=== PATIENT | female | born 1975 | race Caucasian/White ===

== ENCOUNTER 2020-09-16 15:39 | Emergency (ER) | payer OTHER, SELFPAY ==
[2020-09-16 15:45] VITALS: BP 114/89; PULSE 78; RESP 14; TEMP 36.7; O2SAT 98
[2020-09-16] MEDS: Ketorolac Tromethamine 60 MG/2 ML VIAL IM (16:27)
[2020-09-16] MEDS: Lidocaine HCl 2 % MPF 5 ML VIAL SUBCUT (16:28)
--- NOTE | 2020-09-16 16:35 | ED.DENTAL ---
HPI - Dental/Oral General Chief complaint: Dental/Oral Stated complaint: Dental infection Time Seen by Provider: 09/16/20 15:45 Source: patient Mode of arrival: ambulatory Limitations: no limitations History of Present Illness HPI Narrative: Left lower dental pain and swelling x several days. No fevers/chills. Related Data Previous Rx's Medication Instructions Recorded clindamycin HCl 150 mg PO TID 10 Days #30 cap 09/16/20 ketorolac 10 mg PO Q8H PRN #10 tab 09/16/20 Allergies Allergy/AdvReac Type Severity Reaction Status Date / Time erythromycin base Allergy Hives Verified 09/16/20 15:44 acetaminophen [From Vicodin] AdvReac Nausea and Verified 09/16/20 15:45 Vomiting gabapentin AdvReac Shakiness Verified 09/16/20 15:45 hydrocodone [From Vicodin] AdvReac Nausea and Verified 09/16/20 15:45 Vomiting Review of Systems Review of Systems: Yes all other systems are reviewed and are negative Constitutional: Constitutional: Reports no additional constitutional complaints, Denies body ache(s), Denies chills, Denies fever(s), Denies headache(s) and Denies weakness Eyes: Eyes: Reports no additional eye complaints and Denies change in vision ENT: Reports system reviewed and no additional complaints, except as documented, Reports dental pain, Denies dizziness, Denies headache(s), Denies nasal congestion, Denies nasal discharge and Denies neck pain Cardiovascular: Cardiovascular: Reports no additional cardiovascular complaints, Denies chest pain, Denies leg edema and Denies dyspnea Respiratory: Respiratory: Reports no additional respiratory complaints, Denies cough and Denies dyspnea Gastrointestinal: Gastrointestinal: Reports no additional gastrointestinal complaints, Denies abdominal pain, Denies diarrhea, Denies nausea and Denies vomiting Genitourinary: Genitourinary: Reports no additional female genitourinary complaints and Denies urinary incontinence Musculoskeletal: Musculoskeletal: Reports no additional musculoskeletal complaints, Denies back pain, Denies arthralgias, Denies joint swelling, Denies neck pain, Denies numbness and Denies tingling Integumentary/Breasts: Skin/Breast: Reports system reviewed and no additional complaints, except as docu and Denies rash Neurologic: Reports system reviewed and no additional complaints, except as documented, Denies Abnormal speech present, Denies dizziness, Denies headache(s), Denies numbness, Denies tingling and Denies weakness PMFSH Past Medical History Attestation statement: The following information was validated with the patient. Source: old records reviewed and nursing notes reviewed Medical History Anxiety Bipolar 1 disorder Cervical cyst Manic depression PTSD (post-traumatic stress disorder) Surgical History H/O elbow surgery H/O tubal ligation Social History Social History Advance Directives: No Advance Directives Information Provided: No Patient : No Physical Exam Vital Signs: Vital Signs: Last Vital Signs Temp 98.1 F 09/16/20 15:45 Pulse 78 09/16/20 15:45 Resp 14 09/16/20 15:45 BP 114/89 09/16/20 15:45 Pulse Ox 98 09/16/20 15:45 Body Mass Index 0.2 Const: General: cooperative, healthy appearing, comfortable and no acute distress Orientation/consciousness: patient oriented x3 Limitations: no limitations HENMT: Head: Yes normal to inspection Ears: hearing grossly normal bilaterally General nose exam: Normal external nose present Face and sinus: Yes normal facial exam Face images: 1. Mild swelling. No trismus Mouth: Normal oral and palatal mucosa present Teeth image: 1. Extensive caries with swelling no obvious fluctuance there is some mild induration Throat: Yes posterior oropharynx normal Eyes: General: appearance normal, both eyes and all related structures Pupils: Equal, round and reactive pupils present Neck: Neck: Yes normal visual inspection Chest: Chest palpation & inspection: normal inspection of the chest Resp: Effort & Inspection: normal respiratory effort Auscultation: clear to auscultation bilaterally Cardio: Rate: regular rate Rhythm: regular rhythm Peripheral pulses: Peripheral pulses 2+ throughout GI: Inspection: Yes normal to inspection Palpation (GI): Soft to palpation and nontender Auscultation: normal bowel sounds Back/Spine/Pelvis: Thoracic/Lumbar Spine: thoracic and lumbar spine normal to inspection Skin: General skin exam: no rashes or lesions noted Neuro: General: patient oriented x3, no focal motor deficits and normal sensation to monofilament Cranial nerves: Yes Equal, round and reactive pupils present Cognition (Neuro): normal cognition Speech: No Abnormal speech present Gait exam (Neuro): Normal gait present Motor exam (neuro): 5/5 motor strength present throughout Extrem: General: Yes normal to inspection Course Course Course Narrative: Left lower dental swelling and pain. There is local facial swelling. The patient had topical benzocaine applied to the site. Dental block by Dr. Ahmadi with partial success with anesthesia. Attempted to drain the abscess but unsuccessful. Will start patient on oral antibiotics. Toradol IM in ED with some improvement in symptoms. Reviewed worrisome signs and symptoms of when to return to the emergency department. Comfortable discharge home. MDM - Dental/Oral Differential Diagnosis Differential diagnosis: Likely dental caries and dental abscess Medical Records Attestation: I reviewed the patient's medical records. Lab Data Attestation: I reviewed the patient's lab results. Discharge Plan Discharge Clinical Impression: Dental abscess Patient Disposition: Home, Self-Care Instructions: Dental Abscess (ED) Additional Instructions: see dentist salt water gargles soft foods Prescriptions: New clindamycin HCl 150 mg capsule 150 mg PO TID 10 Days Qty: 30 RF: 0 ketorolac 10 mg tablet 10 mg PO Q8H PRN (Reason: pain) Qty: 10 RF: 0 Referrals: Zoraida Beard MD [Primary Care Provider] - 2 days Interventions: ED Discharge Assessment Last Done: 09/16/20 16:51 Discharge Date/Time: 09/16/20 16:52
[2020-09-16] MEDS: Clindamycin HCL 150 MG CAPSULE PO (16:48)
== END 2020-09-16 16:52 | disposition home or self-care (01) ==
PROVIDERS: Emergency Provider Internal Medicine; PCP Internal Medicine
DX: K04.7 Periapical abscess without sinus (principal)
CPT/HCPCS: 41800; 96372; 99283; 99284; J1885

== ENCOUNTER 2020-10-31 20:45 | Emergency (ER) | payer OTHER, SELFPAY ==
[2020-10-31 20:48] VITALS: BP 111/70; PULSE 78; RESP 16; TEMP 37.2; O2SAT 98; BMI 21.1
[2020-10-31] MEDS: cephALEXin 500 MG CAPSULE PO (21:30)
[2020-10-31] MEDS: Lidocaine HCl 1 % MPF 5 ML VIAL SUBCUT (21:30)
--- NOTE | 2020-10-31 22:01 | ED_ITS ---
HPI - Skin/Abscess/Foreign Bdy General Chief complaint: Skin/Abscess/Foreign Body Stated complaint: abcess Time Seen by Provider: 10/31/20 21:11 Source: patient Mode of arrival: ambulatory History of Present Illness HPI narrative: 45-YEAR-OLD FEMALE WITH A PAST MEDICAL HISTORY OF ANXIETY, BIPOLAR, MANIC DEPRESSION, PTSD, PRESENTING TO THE ED COMPLAINING OF DRAINING ABSCESS TO RIGHT FOREARM X3 DAYS. ADMITS LANCED AREA WITH [employer] PET[employer] AND PET SUPPLIES THIS MORNING AND HAS BEEN DRAINING SINCE. DENIES INJECTING DRUGS INTO THIS AREA. ALSO REPORTS LEFT-SIDED SWOLLEN GUMS TIMES WEEKS, WITH HISTORY OF DENTAL ABSCESS IN THE PAST. DENIES FEVER, CHILLS, DIFFICULTY SWALLOWING, ORAL SWELLING MD complaint: abscess/boil Related Data Previous Rx's Medication Instructions Recorded clindamycin HCl 150 mg capsule 150 mg PO TID 10 Days #30 cap 09/16/20 ketorolac 10 mg tablet 10 mg PO Q8H PRN #10 tab 09/16/20 cephalexin 500 mg capsule 500 mg PO QID 7 Days #28 cap 10/31/20 doxycycline hyclate 100 mg tablet 100 mg PO BID 7 Days #14 tab 10/31/20 Allergies Allergy/AdvReac Type Severity Reaction Status Date / Time erythromycin base Allergy Hives Verified 09/16/20 15:44 acetaminophen [From Vicodin] AdvReac Nausea and Verified 09/16/20 15:45 Vomiting gabapentin AdvReac Shakiness Verified 09/16/20 15:45 hydrocodone [From Vicodin] AdvReac Nausea and Verified 09/16/20 15:45 Vomiting Review of Systems Review of Systems: Constitutional: No Fever, No Chills, No Fatigue, No Malaise ENT/Mouth: No Ear Pain, No Nasal Congestion, No sore throat, + dental pain Eyes: No Eye Pain, No Swelling, No Redness Cardiovascular: No Chest Pain, No SOB Respiratory: No Cough, No Dyspnea Gastrointestinal: No Nausea, No Vomiting, No Abdominal pain Musculoskeletal: No joint pain, No Myalgias, + Joint Swelling Skin: + Skin Lesions, No rash Neuro: No Weakness, No Numbness, No Paresthesias Yes all other systems are reviewed and are negative PMFSH Past Medical History Attestation statement: The following information was validated with the patient. Medical History Anxiety Bipolar 1 disorder Cervical cyst Manic depression PTSD (post-traumatic stress disorder) Surgical History H/O elbow surgery H/O tubal ligation Social History Social History Advance Directives: No Advance Directives Information Provided: No Physical Exam Vital Signs: Vital Signs: Last Vital Signs Temp 99 F 10/31/20 20:48 Pulse 78 10/31/20 20:48 Resp 16 10/31/20 20:48 BP 111/70 10/31/20 20:48 Pulse Ox 98 10/31/20 20:48 Body Mass Index 21.1 Const: General: cooperative and healthy appearing Orientation/consciousness: patient oriented x3 Limitations: no limitations HENMT: Other: Mild lower left gingival swelling. No fluctuance/induration. Poor dentition. No fluctuance/induration. No evidence of cellulitis. Head: Yes normal to inspection and Yes atraumatic Ears: hearing grossly normal bilaterally General nose exam: Normal external nose present Face and sinus: Yes normal facial exam Teeth and gingiva: poor dentition Throat: Yes posterior oropharynx normal, Yes tonsils normal, Yes uvula midline, No peritonsillar mass and No uvular edema Eyes: General: appearance normal, both eyes and all related structures EOM: EOMs intact bilaterally Neck: Neck: Yes normal visual inspection Resp: Effort & Inspection: normal respiratory effort and no respiratory distress Cardio: Rate: regular rate Peripheral pulses: radial pulses present Skin: Other: + open draining abscess noted to right forearm with surrounding cellulitis. + central fluctuance and surrounding induration. No streaking. Warm to touch. Not circumferential. Rashes: no rashes Neuro: General: patient oriented x3, gait normal and tone normal Gait exam (Neuro): Normal gait present Extrem: General: Yes normal to inspection MDM - Skin/Abscess/Foreign Bdy MDM Narrative Medical decision making narrative: 45-YEAR-OLD FEMALE WITH A PAST MEDICAL HISTORY OF ANXIETY, BIPOLAR, MANIC DEPRESSION, PTSD, PRESENTING TO THE ED COMPLAINING OF DRAINING ABSCESS TO RIGHT FOREARM X3 DAYS. ALSO REPORTS LEFT- SIDED SWOLLEN GUMS x WEEKS, WITH HISTORY OF DENTAL ABSCESS IN THE PAST. ON EXAM VSS, IN THE ED, PHYSICAL EXAM ABOVE. POINTING/DRAINING ABSCESS NOTED TO RIGHT FOREARM, WILL I AND D. MILD LEFT LOWER GINGIVAL SWELLING WITHOUT APPRECIABLE INTRAORAL ABSCESS. PLAN: I & D, GIVE 1ST DOSE OF P.O. ANTIBIOTICS IN ED Medical Records Attestation: I reviewed the patient's medical records. Lab Data Attestation: I reviewed the patient's lab results. Procedures Abscess I/D Site: upper extremity Side (if applicable): right Local Anesthetic: lidocaine 1% Amount of anesthesia used (mL): 5 Sent for culture/gram staining?: No Irrigation: No Packing used?: none Complications: pain Discharge Plan Discharge Clinical Impression: Abscess of skin or subcutaneous tissue Qualifiers: Site of cutaneous abscess: extremity Site of cutaneous abscess of extremity: upper extremity Laterality: right Qualified Code(s): L02.413 - Cutaneous abscess of right upper limb Patient Disposition: Home, Self-Care Instructions: Abscess (ED), Abscess Follow-up (ED) Additional Instructions: Your abscess was opened/drain today in the ED Keflex and doxycycline are antibiotics, please take as prescribed Keep a close eye on area begins to worsen, redness is spreading, you have fever, or there streaking up her arm please return to the ED Prescriptions: New cephalexin 500 mg capsule 500 mg PO QID 7 Days Qty: 28 RF: 0 doxycycline hyclate 100 mg tablet 100 mg PO BID 7 Days Qty: 14 RF: 0 No Action clindamycin HCl 150 mg capsule 150 mg PO TID 10 Days Qty: 30 RF: 0 ketorolac 10 mg tablet 10 mg PO Q8H PRN (Reason: pain) Qty: 10 RF: 0 Referrals: Zoraida Beard MD [Primary Care Provider] - 3 days
== END 2020-10-31 22:20 | disposition home or self-care (01) ==
PROVIDERS: Emergency Provider Internal Medicine; PCP Internal Medicine
DX: L02.413 Cutaneous abscess of right upper limb (principal)
CPT/HCPCS: 10060; 99283; 99284

== ENCOUNTER 2022-09-11 20:00 | Emergency (ER) | payer OTHER, SELFPAY ==
--- NOTE | ~2022-09-11 | CT_ITS ---
EXAMINATION: CT ABDOMEN AND PELVIS WITHOUT CONTRAST CLINICAL INFORMATION: Right lower quadrant pain COMPARISON: None available. TECHNIQUE: Multidetector volumetric imaging was performed from the superior aspect of the liver through the pubic symphysis. Sagittal and coronal reformatted images were obtained on the technologist's workstation. This CT examination was performed using dose optimization techniques as appropriate, variously including the following: *Automated exposure control *Adjustment of mA and/or kV according to patient size (this includes techniques or standardized protocols for targeted exams where dose is matched to indication/reason for exam; i.e. extremities or head) *Use of iterative reconstruction technique DLP: 280 mGy-cm FINDINGS: LUNG BASES: The visualized lung bases are unremarkable. LIVER, GALLBLADDER, AND BILIARY TREE: The dome of the right hepatic lobe is not fully included on this exam. The liver is normal in size, shape, and attenuation. No focal hepatic lesion or biliary ductal dilatation is identified on this noncontrast exam. The gallbladder is unremarkable. PANCREAS: Grossly unremarkable. SPLEEN: Mildly enlarged. ADRENAL GLANDS: Grossly unremarkable though not well delineated. KIDNEYS AND URETERS: Kidneys appear symmetric. No hydronephrosis or obstructing calculus identified. BLADDER: Minimally distended and grossly unremarkable. GASTROINTESTINAL TRACT: No evidence of bowel obstruction. No significant bowel wall thickening is seen though assessment in some segments of the colon is suboptimal due to luminal collapse. Appendix appears nondilated. No free fluid or free air is seen. ABDOMINAL WALL: No significant hernia is appreciated. LYMPH NODES: No definite lymphadenopathy is seen, though assessment is limited in the absence of intravenous contrast. VASCULAR: Relatively mild scattered atherosclerotic calcification. PELVIC VISCERA: Grossly unremarkable. OSSEOUS STRUCTURES: Unremarkable. CT/CT abdomen pelvis wo IV con IMPRESSION: Normal appendix. No acute findings identified in the abdomen/pelvis, though assessment is suboptimal without intravenous contrast. Mild splenomegaly.
--- NOTE | ~2022-09-11 | XR_ITS ---
EXAMINATION: XR CHEST CLINICAL INFORMATION: Pain COMPARISON: None available. TECHNIQUE: 2 views of the chest were obtained. FINDINGS: The lungs are clear with no focal consolidation. No evidence of pneumothorax, pulmonary edema, or pleural effusions. The cardiomediastinal silhouette is unremarkable. No acute osseous findings. XR/XR chest 2V IMPRESSION: No acute cardiopulmonary findings.
[2022-09-11 21:25] VITALS: BP 147/86; PULSE 79; RESP 18; TEMP 36.7; O2SAT 97; BMI 20.8
--- NOTE | 2022-09-11 21:30 | PC.NURSE ---
patient stated she came into the ER due to she was having pain in the upper right shoulder and the lower abdomen patient stated she has a break out of rash she lives out in the [facility] patient have pain 4/10 patient vitals are stable at this time
[2022-09-11 22:05] LABS: Appearance Urine Cloudy; Color Urine Dark Yellow; Glucose Urine UA Negative (Negative); Leukocyte Esterase Urine Negative (Negative); Nitrite Urine Negative (Negative); Specific Gravity - Urine >= 1.030 (1.005-1.025); UMIC TRIGGER UACC YES; Urine Blood Negative (Negative); Urine Ketones Trace mg/dL (Negative); Urine Protein 30 (1+) mg/dL (Neg-Trace)
[2022-09-11 22:10] LABS: UPreg QC Valid YES; Urine Pregnancy NEGATIVE (NEGATIVE)
[2022-09-11 22:13] LABS: Bacteria Urine Trace (None Seen); Calcium Oxalate Crystals Urine Present; Hyaline Casts Urine 0-2 /LPF (0-2); WBC Urine 0-5 /HPF (0-5)
[2022-09-11 23:39] VITALS: BP 125/86; PULSE 62; RESP 18; TEMP 36.8; O2SAT 99
--- NOTE | 2022-09-12 00:18 | PC.NURSE ---
Pt appears anxious, occasionally pacing the room. Provider at bedside at this time evaluating patient.
[2022-09-12 00:52] LABS: MANUAL DIFF FLAG NO
--- NOTE | 2022-09-12 00:55 | ED_ITS ---
HPI - General Adult General Chief complaint: Abdominal Pain Stated complaint: shoulder,abd pain Time Seen by Provider: 09/12/22 00:14 Source: patient, RN notes reviewed and old records reviewed Mode of arrival: ambulatory Limitations: no limitations History of Present Illness HPI narrative: 47-year-old female presents for evaluation of numerous complaints. Patient's initial complaint is right lower abdominal pain that started last night She also complains of ?I think I have a periumbilical hernia. She reports that she can sometimes feel pressure above her belly button that has been going on for some time The patient also reports that she has been having increased vaginal bleeding despite her menstrual cycle ending about a week and half ago She denies any new sexual partners Denies any abnormal vaginal discharge She also complains of a rash mostly to her left groin that developed after shaving The patient also complains of right shoulder pain that is present with taking a deep breath, coughing or sneezing Patient admits to tobacco dependence, marijuana use, heroin and cocaine abuse Related Data Previous Rx's Medication Instructions Recorded clindamycin HCl 150 mg capsule 150 mg PO TID 10 days #30 caps 09/16/20 ketorolac 10 mg tablet 10 mg PO Q8H PRN pain #10 tabs 09/16/20 cephalexin 500 mg capsule 500 mg PO QID 7 days #28 caps 10/31/20 doxycycline hyclate 100 mg tablet 100 mg PO BID 7 days #14 tabs 10/31/20 Allergies Allergy/AdvReac Type Severity Reaction Status Date / Time erythromycin base Allergy Hives Verified 09/16/20 15:44 acetaminophen [From Vicodin] AdvReac Nausea and Verified 09/16/20 15:45 Vomiting gabapentin AdvReac Shakiness Verified 09/16/20 15:45 hydrocodone [From Vicodin] AdvReac Nausea and Verified 09/16/20 15:45 Vomiting Review of Systems Constitutional: Constitutional: Denies body ache(s), Denies chills, Denies fever(s) and Denies malaise Cardiovascular: Cardiovascular: Denies chest pain Respiratory: Respiratory: Reports pain on inspiration and Reports pain with cough Gastrointestinal: Gastrointestinal: Reports abdominal pain, Denies nausea and Denies vomiting Genitourinary: Genitourinary: Reports abnormal vaginal bleeding Musculoskeletal: Musculoskeletal: Reports arthralgias Integumentary/Breasts: Skin/Breast: Reports erythema, Reports rash and Denies wounds PMFSH Past Medical History Medical History Anxiety Bipolar 1 disorder Cervical cyst Manic depression PTSD (post-traumatic stress disorder) Surgical History H/O elbow surgery H/O tubal ligation Social History Social History Advance Directives: No Advance Directives Information Provided: Yes Physical Exam ED Vital Signs: Vital Signs - 24 hr 09/11/22 21:25 09/11/22 23:39 09/12/22 01:23 Temperature 98.0 F 98.2 F 97.7 F Pulse Rate 79 62 51 Respiratory Rate 18 18 16 Blood Pressure 147/86 H 125/86 116/68 Pulse Oximetry 97 99 98 Oxygen Delivery Method Room Air Room Air Room Air BMI result Body Mass Index 20.8 Const General: healthy appearing, comfortable, no acute distress, alert and awake Nutritional Appearance: well nourished and thin Orientation/consciousness: patient oriented x3 HENMT Head: Yes normocephalic and Yes atraumatic Eyes Eyelids: Yes eyelids normal Conjunctivae: conjunctivae normal Sclerae: sclerae normal Corneas: corneas normal Pupils: Equal, round and reactive pupils present EOM: EOMs intact bilaterally Neck Neck: Yes full ROM Resp Effort & Inspection: normal respiratory effort, able to speak in complete sente nces, no audible wheezes and not labored Auscultation: clear to auscultation bilaterally Cardio Rate: regular rate Rhythm: regular rhythm GI Other: No palpable periumbilical mass Inspection: No distended Palpation (GI): Soft to palpation, not firm, Tenderness to palpation present (GI) in the RLQ, no guarding and not rigid Auscultation: normoactive bowel sounds Back/Spine/Pelvis Other: No right shoulder tenderness. Patient has full range of motion of the right shoulder Skin General skin exam: elasticity normal Neuro General: patient oriented x3 Cranial nerves: Yes Equal, round and reactive pupils present and Yes Bilaterally intact EOM present Cognition (Neuro): normal cognition Extrem Other: Moving all extremities well without any obvious deformities Medications Administered Discontinued Medications Generic Name Dose Route Start Last Admin Trade Name Freq PRN Reason Stop Dose Admin Diphenhydramine HCl 25 mg 09/12/22 01:29 09/12/22 01:36 Diphenhydramine Hcl 25 Mg Capsule PO 09/12/22 01:30 25 mg ONCE ONE Administration Lidocaine HCl 1 appl 09/12/22 01:29 09/12/22 01:36 Lidocaine 4 % Cream Kit TOPICAL 09/12/22 01:30 1 appl ONCE ONE Administration Protocol Zinc Acetate/Diphenhydramine 1 appl 09/12/22 00:31 09/12/22 01:36 Diphenhydramine Hcl 2 % Cream 28 Gm Tube TOPICAL 09/12/22 00:32 Not Given ONCE ONE Protocol Medical Decision Making Medical Decision Making [facility] Narrative: 47-year-old female presents for evaluation of multiple complaints. She complains of right lower abdominal pain since last night and has calcium oxalate crystals in her urine. Will get a CT scan of the abdomen pelvis to evaluate for obstructive uropathy. This will also help evaluate for umbilical hernia. All the patient does not have palpable hernia on exam. Will get basic labs. The patient denies concern for sexually transmitted infections. Will be a chest x- ray if she has right shoulder pain with deep inspiration. Her pain is not reproducible on palpation, so less likely musculoskeletal. 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 Differential Diagnosis Abdominal pain Obstructive uropathy Acute appendicitis Umbilical hernia Acute rash Dermatitis Pseudofolliculitis barbae Pneumothorax Muscle strain Arthritis Lab Data 09/12/22 00:45 09/12/22 00:45 Labs: Lab Results 09/11/22 09/11/22 09/12/22 Range/Units 21:52 21:52 00:45 WBC 3.8 L (4.8-10.8) X10*3/uL RBC 4.49 (4.20-5.50) X10*6/uL Hgb 12.9 (12.0-16.0) g/dl Hct 37.9 (37.0-47.0) % MCV 84.4 (80.0-98.0) fL MCH 28.7 (27.0-33.0) pg MCHC 34.0 (31.0-35.0) g/dl RDW 12.9 (11.0-16.0) % Plt Count 164 (160-400) X10*3/uL MPV 10.0 (9.4-12.3) fL Immature Gran % (Auto) 0.8 H (0.0-0.4) % Neut % (Auto) 42.7 L (45-73) % Lymph % (Auto) 45.4 H (20-40) % Granite % (Auto) 8.4 (2-11) % Eos % (Auto) 2.4 (0-4) % Baso % (Auto) 0.3 (0-2) % Lymph # (Auto) 1.7 (1.2-4.9) X10*3/uL Granite # (Auto) 0.3 (0.1-1.2) X10*3/uL Eos # (Auto) 0.1 (0.0-0.4) X10*3/uL Baso # (Auto) 0.0 (0.0-0.2) X10*3/uL Abs Immat Gran (auto) 0.03 (0.00-0.03) X10*3/uL Absolute Neuts (auto) 1.6 L (2.0-8.3) x10*3/uL Absolute Nucleated RBC 0.000 (0.0-0.012) X10*3/uL Nucleated RBC % (auto) 0.0 (0.0-0.2) /100WBC Sodium (135-145) mmol/L Potassium (3.3-5.1) mmol/L Chloride (96-108) mmol/L Carbon Dioxide (22-29) mmol/L Anion Gap (12-20) BUN (9-16) mg/dL Creatinine (0.5-1.4) mg/dL Estim Creat Clear Calc Estimated GFR Random Glucose (60-115) mg/dL Calcium (8.4-10.2) mg/dL Total Bilirubin (0.0-1.0) mg/dL AST (5-31) U/L ALT (0-31) U/L Alkaline Phosphatase (39-117) U/L Total Protein (6.5-8.0) g/dL Albumin (3.5-5.0) g/dL Lipase (8-78) U/L Urine Color Dark Yellow Urine Appearance Cloudy Urine pH 6.0 (5.0-9.0) Ur Specific [place] >= 1.030 H (1.005-1.025) Urine Protein 30 (1+) H (Neg-Trace) mg/dL Urine Glucose (UA) Negative (Negative) mg/dL Urine Ketones Trace (Negative) mg/dL Urine Blood Negative (Negative) Urine Nitrite Negative (Negative) Ur Leukocyte Esterase Negative (Negative) Urine RBC 11-20 H (0-2) /HPF Urine WBC 0-5 (0-5) /HPF Ur Squamous Epith Cells 3-5 (0-2) /HPF Calcium Oxalate Crystal Present Urine Bacteria Trace (None Seen) Hyaline Casts 0-2 (0-2) /LPF Urine Test NEGATIVE (NEGATIVE) 09/12/22 Range/Units 00:45 WBC (4.8-10.8) X10*3/uL RBC (4.20-5.50) X10*6/uL Hgb (12.0-16.0) g/dl Hct (37.0-47.0) % MCV (80.0-98.0) fL MCH (27.0-33.0) pg MCHC (31.0-35.0) g/dl RDW (11.0-16.0) % Plt Count (160-400) X10*3/uL MPV (9.4-12.3) fL Immature Gran % (Auto) (0.0-0.4) % Neut % (Auto) (45-73) % Lymph % (Auto) (20-40) % Granite % (Auto) (2-11) % Eos % (Auto) (0-4) % Baso % (Auto) (0-2) % Lymph # (Auto) (1.2-4.9) X10*3/uL [place] # (Auto) (0.1-1.2) X10*3/uL Eos # (Auto) (0.0-0.4) X10*3/uL Baso # (Auto) (0.0-0.2) X10*3/uL Abs Immat Gran (auto) (0.00-0.03) X10*3/uL Absolute Neuts (auto) (2.0-8.3) x10*3/uL Absolute Nucleated RBC (0.0-0.012) X10*3/uL Nucleated RBC % (auto) (0.0-0.2) /100WBC Sodium 137 (135-145) mmol/L Potassium 3.7 (3.3-5.1) mmol/L Chloride 104 (96-108) mmol/L Carbon Dioxide 24 (22-29) mmol/L Anion Gap 13 (12-20) BUN 13 (9-16) mg/dL Creatinine 0.68 (0.5-1.4) mg/dL Estim Creat Clear Calc 78.8 Estimated GFR > 60 Random Glucose 91 (60-115) mg/dL Calcium 9.4 (8.4-10.2) mg/dL Total Bilirubin 0.6 (0.0-1.0) mg/dL AST 20 (5-31) U/L ALT 14 (0-31) U/L Alkaline Phosphatase 46 (39-117) U/L Total Protein 7.9 (6.5-8.0) g/dL Albumin 3.8 (3.5-5.0) g/dL Lipase 8 (8-78) U/L Urine Color Urine Appearance Urine pH (5.0-9.0) Ur Specific [place] (1.005-1.025) Urine Protein (Neg-Trace) mg/dL Urine Glucose (UA) (Negative) mg/dL Urine Ketones (Negative) mg/dL Urine Blood (Negative) Urine Nitrite (Negative) Ur Leukocyte Esterase (Negative) Urine RBC (0-2) /HPF Urine WBC (0-5) /HPF Ur Squamous Epith Cells (0-2) /HPF Calcium Oxalate Crystal Urine Bacteria (None Seen) Hyaline Casts (0-2) /LPF Urine Test (NEGATIVE) Discharge Plan Discharge Clinical Impression: Abdominal pain, Acute maculopapular rash Patient Disposition: Left Against Medical Advice Prescriptions: No Action clindamycin HCl 150 mg capsule 150 mg PO TID 10 Days Qty: 30 0RF ketorolac 10 mg tablet 10 mg PO Q8H PRN (Reason: pain) Qty: 10 0RF cephalexin 500 mg capsule 500 mg PO QID 7 Days Qty: 28 0RF doxycycline hyclate 100 mg tablet 100 mg PO BID 7 Days Qty: 14 0RF Stand Alone Forms: Against Medical Advice
[2022-09-12 00:59] LABS: Basophils Percent Auto 0.3 % (0-2); Eosinophils Absolute Auto 0.1 X10*3/uL (0.0-0.4); Eosinophils Percent Auto 2.4 % (0-4); Hematocrit 37.9 % (37.0-47.0); Hemoglobin 12.9 g/dl (12.0-16.0); Imm Gran Abs Auto 0.03 X10*3/uL (0.00-0.03); Imm Gran Pct Auto 0.8 % (0.0-0.4); Lymphocytes Absolute Auto 1.7 X10*3/uL (1.2-4.9); Lymphocytes Percent Auto 45.4 % (20-40); Mean Corpuscular Hemoglobin 28.7 pg (27.0-33.0); Mean Corpuscular Volume 84.4 fL (80.0-98.0); Monocytes Absolute Auto 0.3 X10*3/uL (0.1-1.2); Monocytes Percent Auto 8.4 % (2-11); Neutrophils Absolute Auto 1.6 x10*3/uL (2.0-8.3); Neutrophils Percent Auto 42.7 % (45-73); Platelet Count 164 X10*3/uL (160-400); Red Blood Count 4.49 X10*6/uL (4.20-5.50); Red Cell Distribution Width 12.9 % (11.0-16.0); White Blood Count 3.8 X10*3/uL (4.8-10.8)
[2022-09-12 01:23] VITALS: BP 116/68; PULSE 51; RESP 16; TEMP 36.5; O2SAT 98
[2022-09-12 01:30] LABS: Alanine Aminotransferase 14 U/L (0-31); Albumin Level 3.8 g/dL (3.5-5.0); Alkaline Phosphatase 46 U/L (39-117); Anion Gap 13 (12-20); Aspartate Amino Transferase 20 U/L (5-31); Bilirubin Total 0.6 mg/dL (0.0-1.0); Blood Urea Nitrogen 13 mg/dL (9-16); Calcium 9.4 mg/dL (8.4-10.2); Carbon Dioxide 24 mmol/L (22-29); Chloride 104 mmol/L (96-108); Creatinine Clr Calc Pharmacy 78.8; Estimated Glomerular Filt Rate > 60; Glucose Random 91 mg/dL (60-115); Lipase 8 U/L (8-78); Potassium 3.7 mmol/L (3.3-5.1); Sodium 137 mmol/L (135-145); Total Protein 7.9 g/dL (6.5-8.0)
[2022-09-12] MEDS: Lidocaine 4 % Cream KIT 1 APPL TOPICAL (01:36)
[2022-09-12] MEDS: diphenhydrAMINE HCL 25 MG CAPSULE PO (01:36)
== END 2022-09-12 02:08 | disposition left against medical advice (07) ==
PROVIDERS: Physician Assistant; Emergency Provider Student in an Organized Health Care Education/Training Program; PCP Internal Medicine
DX: R10.31 Right lower quadrant pain (principal); M25.511 Pain in right shoulder; R21 Rash and other nonspecific skin eruption; R07.89 Other chest pain; Z79.899 Other long term (current) drug therapy
CPT/HCPCS: 36415; 71046; 74176; 80053; 81001; 81025; 83690; 85025; 99283; 99284

== ENCOUNTER 2023-04-11 04:26 | Inpatient (IN) | payer MEDICAID, SELFPAY ==
[2023-04-11] VITALS (25 sets, daily range): BP systolic 70–135; BP diastolic 35–69; PULSE 50–96; RESP 16–30; TEMP 36.1–37.6; O2SAT 86–97
--- NOTE | 2023-04-11 | ECG_ITS ---
Test Reason : upper resp,cp Blood Pressure : / mmHG Vent. Rate : 070 BPM Atrial Rate : 070 BPM P-R Int : 114 ms QRS Dur : 090 ms QT Int : 418 ms P-R-T Axes : 037 071 047 degrees QTc Int : 451 ms Sinus rhythm with frequent Premature ventricular complexes Otherwise normal ECG No previous ECGs available Referred By: Generic ED Physician Electronically Signed By:ANAMIKA AMIN
--- NOTE | ~2023-04-11 | XR_ITS ---
EXAMINATION: XR CHEST CLINICAL INFORMATION: Fever COMPARISON: None available. TECHNIQUE: Frontal view of the chest was obtained. FINDINGS: The lungs are expanded with dense opacification right middle lobe and right lower lobe suggestive of infiltrate. Rest lungs are expanded and clear. Heart size and pulmonary vascularity is normal. No gross bony abnormality. XR/XR chest 1V IMPRESSION: Right middle lobe and right lower lobe infiltrate.
--- NOTE | 2023-04-11 05:22 | MHC.EDTECH ---
Patient came in from ambulance,changed into hospital attire,vitals taken,and are low 81/45 on the left and 80/42 on the right,O2 stats 86%,RN is aware. EKG taken per order and signed by provider. Labs obtained and sent to lab.
[2023-04-11 05:32] LABS: COVID-19 Test Negative (Negative); IDNOW Serial# 58CA691E; IDNOW Serial# 9DB6401D; Influenza A Positive (Negative); Influenza B2 Negative (Negative)
[2023-04-11 05:35] LABS: Hemoglobin 13.6 g/dl (12.0-16.0); Mean Corpuscular HGB Conc 33.2 g/dl (31.0-35.0); Mean Corpuscular Hemoglobin 27.4 pg (27.0-33.0); Mean Corpuscular Volume 82.7 fL (80.0-98.0); Mean Platelet Volume 10.6 fL (9.4-12.3); Platelet Count 126 X10*3/uL (160-400); Red Blood Count 4.96 X10*6/uL (4.20-5.50); Red Cell Distribution Width 13.4 % (11.0-16.0)
--- NOTE | 2023-04-11 05:43 | MHC.EDTECH ---
Patient's BP is low 78/35 RN is aware
--- NOTE | 2023-04-11 05:44 | PC.NURSE ---
Pt ca&ox4, no signs of distress. Pt B/P 78/34, provider aware anwer. Pt given 1l of fluids per provider. Blood cultures taken and sent. Labs taken and sent flu and covid swab done and sent. Pt changed into hospital attire. Pt placed on 3L of 02 due to sat of 88 on room air, pt now @ 91. Plan of care ongoing.
[2023-04-11 05:45] LABS: Lactic Acid 1.8 mmol/L (0.5-2.0)
[2023-04-11 05:51] LABS: Alanine Aminotransferase 9 U/L (0-31); Albumin Level 3.6 g/dL (3.5-5.0); Alkaline Phosphatase 41 U/L (39-117); Anion Gap 14 (12-20); Aspartate Amino Transferase 20 U/L (5-31); Bilirubin Total 0.8 mg/dL (0.0-1.0); Blood Urea Nitrogen 26 mg/dL (9-16); Calcium 8.7 mg/dL (8.4-10.2); Carbon Dioxide 24 mmol/L (22-29); Chloride 99 mmol/L (96-108); Creatinine Clr Calc Pharmacy 40.5; Estimated Glomerular Filt Rate 44; Glucose Random 140 mg/dL (60-115); Potassium 3.8 mmol/L (3.3-5.1); Sodium 133 mmol/L (135-145); Total Protein 7.6 g/dL (6.5-8.0)
--- NOTE | 2023-04-11 05:55 | ED.GENADULT ---
HPI - General Adult General Chief complaint: Upper Respiratory Symptoms Stated complaint: difficulty breathing Time Seen by Provider: 04/11/23 05:42 Source: patient Mode of arrival: EMS Limitations: no limitations History of Present Illness HPI narrative: Patient history of IV drug use cocaine and heroin last use was 24 hours ago comes here as she has not feeling good complaining of cough and body aches headache when she coughs. Temperature 99.2 degrees on arrival blood pressure 94/47 heart rate 71 saturating 90% at room air patient denies any history of bacteremia in the past no open wound or abscesses does have IV track calixto been denied any palpitation or shortness of breath Related Data Previous Rx's Medication Instructions Recorded clindamycin HCl 150 mg capsule 150 mg PO TID 10 days #30 caps 09/16/20 ketorolac 10 mg tablet 10 mg PO Q8H PRN pain #10 tabs 09/16/20 cephalexin 500 mg capsule 500 mg PO QID 7 days #28 caps 10/31/20 doxycycline hyclate 100 mg tablet 100 mg PO BID 7 days #14 tabs 10/31/20 Allergies Allergy/AdvReac Type Severity Reaction Status Date / Time erythromycin base Allergy Hives Verified 09/16/20 15:44 gabapentin AdvReac Shakiness Verified 09/16/20 15:45 hydrocodone [From Vicodin] AdvReac Nausea and Verified 09/16/20 15:45 Vomiting Review of Systems Review of Systems: Yes all other systems are reviewed and are negative PMF Past Medical History Medical History Anxiety Bipolar 1 disorder Cervical cyst Manic depression PTSD (post-traumatic stress disorder) Surgical History H/O elbow surgery H/O tubal ligation Social History Social History Advance Directives: No Advance Directives Information Provided: No Physical Exam ED Vital Signs: Vital Signs - 24 hr 04/11/23 04:55 04/11/23 04:58 04/11/23 05:00 Temperature 98.6 F 99.7 F Pulse Rate 71 69 68 Respiratory Rate 20 30 H 26 H Blood Pressure 94/47 L 81/45 L 80/42 L Pulse Oximetry 90 L 86 L 86 L Oxygen Delivery Method Room Air Room Air Room Air Oxygen Flow Rate 04/11/23 05:13 04/11/23 05:28 04/11/23 05:43 Temperature 99.2 F Pulse Rate 73 63 64 Respiratory Rate 24 H 22 H 22 H Blood Pressure 93/42 L 78/35 L 70/43 L Pulse Oximetry 91 L 93 93 Oxygen Delivery Method Nasal Cannula Nasal Cannula Nasal Cannula Oxygen Flow Rate 3 3 3 04/11/23 05:58 04/11/23 06:12 04/11/23 06:40 Temperature 98.7 F Pulse Rate 63 60 Respiratory Rate 20 20 Blood Pressure 80/41 L 89/43 L Pulse Oximetry 91 L 90 L 91 L Oxygen Delivery Method Nasal Cannula Nasal Cannula Nasal Cannula Oxygen Flow Rate 3 3 04/11/23 07:00 Temperature 98.6 F Pulse Rate 56 Respiratory Rate 18 Blood Pressure 85/37 L Pulse Oximetry 91 L Oxygen Delivery Method Nasal Cannula Oxygen Flow Rate 4 BMI result Body Mass Index 20.0 Appearance: Alert. Oriented X3. No acute distress. Eyes: PERRLA ENT: Pharynx normal. Oral Mucosa moist Neck: Normal inspection. Neck supple. CVS: Normal heart rate and rhythm. Pulses normal. Respiratory: No respiratory distress. Equal air entry bilateral, no wheezing/rales/rhonchi Abdomen: Soft and nontender. Bowel sounds are present, no mass palpable, no CVA tenderness Skin: Skin warm and dry. Normal skin color. Normal skin turgor. Extremities: No lower extremity edema. No calf tenderness IVDA track calixto+ Neuro: Oriented X 3. No motor deficit. Medications Administered Generic Name Dose Route Start Last Admin Trade Name Freq PRN Reason Stop Dose Admin Sodium Chloride 2,000 mls @ 666.6666 mls/hr 04/11/23 05:46 04/11/23 06:31 Ns IV 04/11/23 08:45 666.67 mls/hr .Q3H STA Administration Discontinued Medications Generic Name Dose Route Start Last Admin Trade Name Freq PRN Reason Stop Dose Admin Acetaminophen 650 mg 04/11/23 05:51 04/11/23 06:30 Acetaminophen 325 Mg Tablet PO 04/11/23 05:52 650 mg ONCE ONE Administration Ceftriaxone Sodium 1 gm/ 50 mls @ 100 mls/hr 04/11/23 05:49 04/11/23 06:31 Sodium Chloride IV 04/11/23 06:18 100 mls/hr ONCE ONE Administration Medical Decision Making Medical Decision Making MDM Narrative: 06:00 Patient with influenza a with hypotension with bandemia with history of IV drug abuse possible bacteremia started on Rocephin and vancomycin started on IV fluids 30 cc/kilogram patient had transient hypotension which responded to IV fluids patient also received Tamiflu case discussed hospitalist will admit patient to medical service Differential Diagnosis Differential Diagnoses: The differential diagnosis associated with the presentation includes Influenza a/bacteremia/pneumonia Admission/Observation Consideration of admission/observation: Escalation of care including admission/observation considered Consult Healthcare Provider Management of the patient was discussed with: Hospitalist Lab Data [facility] Lab Attestation statement: I reviewed the patient's lab results. 04/11/23 05:28 04/11/23 05:30 Labs: Lab Results 04/11/23 04/11/23 04/11/23 Range/Units 05:12 05:28 05:30 WBC 5.0 (4.8-10.8) X10*3/uL RBC 4.96 (4.20-5.50) X10*6/uL Hgb 13.6 (12.0-16.0) g/dl Hct 41.0 (37.0-47.0) % MCV 82.7 (80.0-98.0) fL MCH 27.4 (27.0-33.0) pg MCHC 33.2 (31.0-35.0) g/dl RDW 13.4 (11.0-16.0) % Plt Count 126 L (160-400) X10*3/uL MPV 10.6 (9.4-12.3) fL Immature Gran % (Auto) Cancelled Neut % (Auto) Cancelled Lymph % (Auto) Cancelled [place] % (Auto) Cancelled Eos % (Auto) Cancelled Baso % (Auto) Cancelled Lymph # (Auto) Cancelled [place] # (Auto) Cancelled Eos # (Auto) Cancelled Baso # (Auto) Cancelled Abs Immat Gran (auto) Cancelled Absolute Neuts (auto) Cancelled Absolute Nucleated RBC 0.000 (0.0-0.012) X10*3/uL Nucleated RBC % (auto) 0.0 (0.0-0.2) /100WBC Neutrophils % (Manual) 48 (45-73) % Band Neutrophils % 36 H (3-5) % Lymphocytes % (Manual) 11 L (20-40) % Monocytes % (Manual) 4 (2-11) % Metamyelocytes % 1 % Abs Neuts (Manual) 4.2 (2.0-8.3) X10*3/uL Lymphocytes # (Manual) 0.6 L (1.2-4.9) X10*3/uL Monocytes # (Manual) 0.2 (0.1-1.2) X10*3/uL Metamyelocytes # 0.1 X10*3/uL Toxic Vacuolation PRESENT Platelet Estimate SLIGHTLY DECREASED (NORMAL) Plt Morphology Comment NORMAL RBC Morphology NORMAL Sodium 133 L (135-145) mmol/L Potassium 3.8 (3.3-5.1) mmol/L Chloride 99 (96-108) mmol/L Carbon Dioxide 24 (22-29) mmol/L Anion Gap 14 (12-20) BUN 26 H (9-16) mg/dL Creatinine 1.31 (0.5-1.4) mg/dL Estim Creat Clear Calc 40.5 Estimated GFR 44 Random Glucose 140 H (60-115) mg/dL Lactic Acid 1.8 (0.5-2.0) mmol/L Calcium 8.7 D (8.4-10.2) mg/dL Total Bilirubin 0.8 (0.0-1.0) mg/dL AST 20 (5-31) U/L ALT 9 (0-31) U/L Alkaline Phosphatase 41 (39-117) U/L Total Protein 7.6 (6.5-8.0) g/dL Albumin 3.6 (3.5-5.0) g/dL COVID-19 (ERIKA) Negative (Negative) COVID-19 Clin Com See Note Influenza Type A (VEL) Positive A (Negative) Influenza Type B (VEL) Negative (Negative) Influenza A & B Note See Note Independent Interpretation I performed an independent interpretation of an: Plain X-Ray Interpretation: Right lower lobe pneumonia Radiology Impression Discussion of test interpretation with radiology: I have reviewed the radiologist's reading. Critical Care Time Critical Care Time Critical Care Time: Yes Total Critical Care Time: 45 Attestation: The patient was critically ill with a high probability of imminent or life threatening deterioration. I spent greater than 50???minutes of discontinuous time evaluating the patient,delivering critical care at the bedside, discussing and evaluating pertinent data with consultants. Critical care time does not include time spent performing separately billable procedures or teaching. Total time spent performing critical care was 45???minutes. Discharge Plan Discharge Clinical Impression: Influenza A, Pneumonia Patient Disposition: Admitted As Inpatient
[2023-04-11 05:57] LABS: Neutrophils Percent Manual 48 % (45-73)
[2023-04-11 05:58] LABS: Band Neutrophils Percent 36 % (3-5); Lymphocytes Absolute Manual 0.6 X10*3/uL (1.2-4.9); Lymphocytes Percent Manual 11 % (20-40); Metamyelocytes Absolute 0.1 X10*3/uL; Metamyelocytes Percent 1 %; Monocytes Absolute Manual 0.2 X10*3/uL (0.1-1.2); Monocytes Percent Manual 4 % (2-11); Neutrophils Absolute Manual 4.2 X10*3/uL (2.0-8.3); Platelet Estimate SLIGHTLY DECREASED (NORMAL); Platelet Morphology Comment NORMAL; RBC Morphology NORMAL; Toxic Vacuolation PRESENT
--- NOTE | 2023-04-11 06:22 | MHC.EDTECH ---
Vitals taken and BP is low 89/43 RN is aware . Call fitch in reach
[2023-04-11] MEDS: Acetaminophen 325 MG TABLET 650 MG PO ×2 (06:30→17:00)
[2023-04-11] MEDS: cefTRIAXone sodium 1 GM in 0.9 % Sodium Chloride 50 ML IV (06:31)
[2023-04-11] MEDS: 0.9 % Sodium Chloride 2,000 ML 666.67 ML IV (06:31)
--- NOTE | 2023-04-11 06:38 | PC.NURSE ---
Pt medicated per apr. Plan of care ongoing.
--- NOTE | 2023-04-11 07:07 | PC.NURSE ---
Abx started late d/t pts IV line infiltrating. 2nd IV placed @ 0625 and abx and fluids running on that IV. Plan of care ongoing.
[2023-04-11] MEDS: vancomycin HCL 1,250 MG in 0.9 % Sodium Chloride 250 ML 166.67 MG IV (07:11)
[2023-04-11] MEDS: Oseltamivir Phosphate 75 MG CAPSULE PO (07:16)
[2023-04-11] MEDS: Albumin Human 25 % 100 ML IV ×4 (07:45→14:30)
--- NOTE | 2023-04-11 07:50 | PC.NURSE ---
Alert and oriented, denies pain or discomfort. provider aware of continued low BP, new orders obtained. IV in right forearm infiltrated, removed and hot compress applied. New iv started in top of left hand, medicated per apr. denies lightheadedness or dizziness. ambulating to bathroom with steady gait
--- NOTE | 2023-04-11 08:04 | PHA.MEDREC ---
Pharmacy Consult ? Medication Reconciliation Pharmacy has completed the medication reconciliation.
[2023-04-11 08:09] LABS: Appearance Urine Cloudy; Color Urine Dark Yellow; Glucose Urine UA Negative (Negative); Leukocyte Esterase Urine Trace (Negative); Nitrite Urine Negative (Negative); PH 5.5 (5.0-9.0); Specific Gravity - Urine 1.025 (1.005-1.025); UMIC TRIGGER UACC YES; Urine Blood Negative (Negative); Urine Ketones Trace mg/dL (Negative); Urine Protein 100 (2+) mg/dL (Neg-Trace)
[2023-04-11 08:14] LABS: Amphetamine Screen Urine POSITIVE (Not Detect); Barbiturates, Urine Not Detected (Not Detect); Benzodiazepines Screen Urine Not Detected (Not Detect); Cannabinoid Screen Urine POSITIVE (Not Detect); Cocaine Screen Urine POSITIVE (Not Detect); Fentanyl, urine POSITIVE (Not Detect); Opiate Screen Urine POSITIVE (Not Detect); Phencyclidine Screen Urine Not Detected (Not Detect)
[2023-04-11] MEDS: oxyCODONE HCl Immed Release 5 MG TABLET 10 MG PO ×3 (08:27→19:59)
[2023-04-11 08:29] LABS: Bacteria Urine None Seen (None Seen); RBC Urine 0-2 /HPF (0-2); WBC Urine 0-5 /HPF (0-5)
--- NOTE | 2023-04-11 09:12 | MHC.RECOVRN ---
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 MD agrees to give more methadone if patient needs. Original Note: Met with pt in ED Bed #22 after consult placed to Addiction Medicine for OUD and withdrawal. Pt had presented to the ED from community by ambulance. Upon evaluation, pt hypotensive, febrile and found to be positive for influenza A. Pt laying in bed, awake, alert, easily engages in conversation, appears comfortable. Pt reports heroin use, 2 Bundles daily, with last stated use 2 days ago on . Pt reports she has used suboxone and methadone in the past, would prefer methadone and states I do need help quitting drugs . Pt requesting methadone today, spoke with Dr. Perkins who plans to put the order in for 10mg. Pt being admitted to inpatient. Pt is unhoused, [place], was not open to local snf options at this time. Pt denies other questions or concerns, will follow up with patient regarding how she feels after dose. Discussed with Linda Cabello APRN.??
[2023-04-11] MEDS: 0.9 % Sodium Chloride 1,000 ML 999 ML IV (09:26)
[2023-04-11] MEDS: methADONE HCl 20 MG/2 ML ORAL.CONC 10 MG PO ×2 (09:27→20:43)
--- NOTE | 2023-04-11 10:35 | PHA.PROG ---
Admission Date/Time: April 11, 2023 09:37 Indication: RESP INF Weight in k kg Adjusted body weight in K.8 KG [place] body weight in K.8 KG Obesity Dosing Indication % IBW: Serum Creatinine - Last 168 Hours 04/11/23 05:30 Creatinine 1.31 Estimated CrCl and GFR - Last 168 Hours 04/11/23 05:30 Estim Creat Clear Calc 40.5 Estimated GFR 44 Vancomycin Loading Dose: 1250 MG X 1 Current Vancomycin Dosing Regimen: 500 MG Q12H Vancomycin Monitoring using AUC goal of 400 - 600 range with trough as surrogate marker: PREDICTED AUC OF 505 Date and Time for next Vancomycin Level to be drawn: 04/12/23 @1700 (BEFORE 4TH DOSE) Pharmacist Comments on Vancomycin Plan: Vancomycin dosing will take advantage of [employer] as a clinical decision support tool that uses Bayesian modeling to calculate individual patient's pharmacokinetic parameters and forecast the patient's drug concentration time course with the target goal AUC 24 range of 400 - 600 mg/L/hr.
[2023-04-11] MEDS: Enoxaparin Sodium 40 MG/0.4 ML SYRINGE SUBCUT (10:46)
--- NOTE | 2023-04-11 10:48 | PC.NURSE ---
Patient reports feeling better, titrated down to 2 liters 02 via nc sating 95%.
[2023-04-11] MEDS: 0.9 % Sodium Chloride 1,000 ML 125 ML IVCONT (11:17)
--- NOTE | 2023-04-11 11:19 | PC.NURSE ---
02 titrated down to 1 liters, BP 93/50, provider aware
--- NOTE | 2023-04-11 12:19 | P.HPHOSP_ITS ---
History of Present Illness Date of Service: 04/11/23 Chief Complaint: Shortness of breath 48-year-old female with a history of IV cocaine and heroin use ongoing presents with approximately 24-48 hours of worsening shortness of breath cough and body aches. Initial presentation to the ER temperature was 99.2 degrees and she was profoundly hypotensive. She denied open wounds or other substances. She was aggressively volume resuscitated with albumin and lactated ringers and responded to therapy. She was given vancomycin and ceftriaxone in the ER and will be admitted for further management; chest x-ray consistent with bilateral lower lobe pneumonia Review of Systems 2 Review of Systems: Denies chest pain Admits to shortness of breath Denies nausea vomiting diarrhea Admits to fever and chills PMFSH Medical History Manic depression Anxiety PTSD (post-traumatic stress disorder) Bipolar 1 disorder Cervical cyst Surgical History H/O elbow surgery H/O tubal ligation Social History Smoked in Last 30 Days: Yes Substance Use Type: Crack/Cocaine and Heroin Substance Use Frequency: Chronic Longstanding Last Used Substance: Days (ago) Advance Directives: No Advance Directives Information Provided: No Meds Allergies Allergy/AdvReac Type Severity Reaction Status Date / Time erythromycin base Allergy Hives Verified 09/16/20 15:44 gabapentin AdvReac Shakiness Verified 09/16/20 15:45 hydrocodone [From Vicodin] AdvReac Nausea and Verified 09/16/20 15:45 Vomiting Active Medications: Current Medications Acetaminophen (Acetaminophen 325 Mg Tablet) 650 mg PO Q6H PRN PRN Reason: Pain, Mild (Pain Scale 1-3) Enoxaparin Sodium (Enoxaparin Sodium 40 Mg/0.4 Ml Syringe) 40 mg SUBCUT Q24H ROBERT Last Admin: 04/11/23 10:46 Dose: 40 mg Ceftriaxone Sodium 2 gm/ (Sodium Chloride) 50 mls @ 100 mls/hr IV Q24H ROBERT Vancomycin HCl 500 mg/ Sodium (Chloride) 110 mls @ 110 mls/hr IV Q12H ROBERT Sodium Chloride (Ns) 1,000 mls @ 999 mls/hr IVCONT .Q1H1M ROBERT Stop: 04/11/23 14:30 Albumin Human (Kedbumin 25 %) 100 mls @ 100 mls/hr IV Q1H COUNT INCLUDES THE [facility] Stop: 04/11/23 14:29 Ondansetron HCl (Ondansetron Hcl 4 Mg/2 Ml Vial) 4 mg IVPUSH Q8H PRN PRN Reason: Nausea and Vomiting Oseltamivir Phosphate (Oseltamivir Phosphate 30 Mg Capsule) 30 mg PO Q12H COUNT INCLUDES THE [facility] Stop: 04/15/23 19:01 Oxycodone HCl (Oxycodone Hcl Immed Release 5 Mg Tablet) 10 mg PO Q4H PRN PRN Reason: Pain, Moderate(Pain Scale 4-6) Pharmacy Consult (Consult Rx Vancomycin Dosing) 1 each MISCELLANE DAILY PRN PRN Reason: Consult order Sodium Chloride (0.9 % Sodium Chloride Flush 3 Ml Syringe) 3 ml IVFLUSH QSHIFT COUNT INCLUDES THE [facility] Home Medications Medication Instructions Recorded Confirmed Last Taken Type No Known Home Meds 04/11/23 04/11/23 Unknown History Physical Exam 2 Vital Signs and Narrative: Vital Signs: Last Vital Signs Temp 98.7 F 04/11/23 11:19 Pulse 51 04/11/23 12:05 Resp 18 04/11/23 12:05 BP 87/47 L 04/11/23 12:05 Pulse Ox 93 04/11/23 12:05 O2 Del Method Nasal Cannula 04/11/23 12:05 O2 Flow Rate 1 04/11/23 12:05 Oxygen Flow Rate 3.5 04/11/23 06:40 BMI result Body Mass Index 20.0 Const: Other: Awake alert oriented x3 no acute distress Resp: Other: Bilateral lower lobe rhonchi with expiratory wheezes Cardio: Other: No S4; positive S1-S2; no S3 murmurs rubs or gallops GI: Other: Soft nontender nondistended normoactive bowel sounds Neuro: Other: Cranial nerves 2-12 grossly intact as tested. Motor is 5/5 all extremities. Sensation is intact. Cognition is appropriate Extrem: Other: No edema bilaterally Results Labs 04/11/23 05:28 04/11/23 05:30 Labs: Laboratory Results - last 24 hr 04/11/23 04/11/23 04/11/23 05:12 05:28 05:30 MCV 82.7 MCH 27.4 MCHC 33.2 RDW 13.4 Plt Count 126 L MPV 10.6 Immature Gran % (Auto) Cancelled Neut % (Auto) Cancelled Lymph % (Auto) Cancelled [place] % (Auto) Cancelled Eos % (Auto) Cancelled Baso % (Auto) Cancelled Lymph # (Auto) Cancelled [place] # (Auto) Cancelled Eos # (Auto) Cancelled Baso # (Auto) Cancelled Abs Immat Gran (auto) Cancelled Absolute Neuts (auto) Cancelled Absolute Nucleated RBC 0.000 Nucleated RBC % (auto) 0.0 Neutrophils % (Manual) 48 Band Neutrophils % 36 H Lymphocytes % (Manual) 11 L Monocytes % (Manual) 4 Metamyelocytes % 1 Abs Neuts (Manual) 4.2 Lymphocytes # (Manual) 0.6 L Monocytes # (Manual) 0.2 Metamyelocytes # 0.1 Toxic Vacuolation PRESENT Platelet Estimate SLIGHTLY DECREASED Plt Morphology Comment NORMAL RBC Morphology NORMAL Anion Gap 14 Estim Creat Clear Calc 40.5 Estimated GFR 44 Random Glucose 140 H Lactic Acid 1.8 Calcium 8.7 D Total Bilirubin 0.8 AST 20 ALT 9 Alkaline Phosphatase 41 Total Protein 7.6 Albumin 3.6 Urine Color Urine Appearance Urine pH Ur Specific [place] Urine Protein Urine Glucose (UA) Urine Ketones Urine Blood Urine Nitrite Ur Leukocyte Esterase Urine RBC Urine WBC Ur Squamous Epith Cells Urine Bacteria Hyaline Casts Urine Opiates Screen Urine Fentanyl Screen Ur Barbiturates Screen Ur Phencyclidine Scrn Ur Amphetamines Screen U Benzodiazepines Scrn Urine Cocaine Screen U Marijuana (THC) Screen COVID-19 (ERIKA) Negative COVID-19 Clin Com See Note Influenza Type A (VEL) Positive A Influenza Type B (VEL) Negative Influenza A & B Note See Note 04/11/23 07:53 MCV MCH MCHC RDW Plt Count MPV Immature Gran % (Auto) Neut % (Auto) Lymph % (Auto) [place] % (Auto) Eos % (Auto) Baso % (Auto) Lymph # (Auto) [place] # (Auto) Eos # (Auto) Baso # (Auto) Abs Immat Gran (auto) Absolute Neuts (auto) Absolute Nucleated RBC Nucleated RBC % (auto) Neutrophils % (Manual) Band Neutrophils % Lymphocytes % (Manual) Monocytes % (Manual) Metamyelocytes % Abs Neuts (Manual) Lymphocytes # (Manual) Monocytes # (Manual) Metamyelocytes # Toxic Vacuolation Platelet Estimate Plt Morphology Comment RBC Morphology Anion Gap Estim Creat Clear Calc Estimated GFR Random Glucose Lactic Acid Calcium Total Bilirubin AST ALT Alkaline Phosphatase Total Protein Albumin Urine Color Dark Yellow Urine Appearance Cloudy Urine pH 5.5 Ur Specific [place] 1.025 Urine Protein 100 (2+) H Urine Glucose (UA) Negative Urine Ketones Trace Urine Blood Negative Urine Nitrite Negative Ur Leukocyte Esterase Trace H Urine RBC 0-2 Urine WBC 0-5 Ur Squamous Epith Cells 11-20 Urine Bacteria None Seen Hyaline Casts 6-10 Urine Opiates Screen POSITIVE H Urine Fentanyl Screen POSITIVE H Ur Barbiturates Screen Not Detected Ur Phencyclidine Scrn Not Detected Ur Amphetamines Screen POSITIVE H U Benzodiazepines Scrn Not Detected Urine Cocaine Screen POSITIVE H U Marijuana (THC) Screen POSITIVE H COVID-19 (ERIKA) COVID-19 Clin Com Influenza Type A (VEL) Influenza Type B (VEL) Influenza A & B Note Imaging Radiologist's Impressions: Impressions Chest X-Ray 04/11/23 06:09 IMPRESSION: Right middle lobe and right lower lobe infiltrate. Assessment and Plan (1) Influenza A: Status: Acute (2) Pneumonia: Qualifiers: Pneumonia type: due to influenza A virus Qualified Code(s): J10.00 - Influenza due to other identified influenza virus with unspecified type of pneumonia Status: Acute Plan 48-year-old female with known history of IV cocaine and heroin abuse presents with worsening shortness of breath body aches fever chills times 48 hours. In the emergency room workup consistent for right-sided middle and lower lobe infiltrate influenza A positive. She was hypotensive on arrival. . . Responding to volume resuscitation 1. Right middle lobe/right lower lobe infiltrate -vancomycin/Zosyn (1)... Albumin x2 bottles -supplemental O2 to titrate sats greater than or equal to 92% -given soft BP will aggressively volume replete along with albumin -Tamiflu for influenza a 2. Polysubstance abuse -seen by addiction Medicine; methadone 10 mg daily ordered -adjust as clinically tolerated and as clinically indicated Full code Lovenox Patient will require 2 midnights going forward of inpatient stay for IV antibiotics to treat right-sided infiltrate along with aggressive volume repletion for mild hypotension. This can not be achieved a lesser acute setting Quality Stroke Does the patient have a stroke diagnosis?: No VTE Prior VTE?: No VTE Risk Level:: Medical - moderate - high VTE Device Contraindication: Treatment Not Indicated VTE Drug Contraindication: N/A - Med Ordered
[2023-04-11] MEDS: 0.9 % Sodium Chloride 1,000 ML 999 ML IVCONT ×2 (12:30→14:32)
[2023-04-11] MEDS: Piperacillin Sodium/Tazobactam 3.375 GM in 0.9 % Sodium Chloride 50 ML IV ×2 (13:20→19:47)
[2023-04-11] MEDS: 0.9 % Sodium Chloride Flush 3 ML SYRINGE IVFLUSH (16:26)
--- NOTE | 2023-04-11 16:39 | PC.NURSE ---
Pt c/o cough ,HR low 50,down to 48 on one occasion reported by [facility] tech,Sinus Alexei on a monitor,Dr. Tejada notified.
[2023-04-11] MEDS: guaiFENesin 200 MG/10 ML 10 ML LIQUID PO (17:00)
[2023-04-11] MEDS: Oseltamivir Phosphate 30 MG CAPSULE PO (19:49)
--- NOTE | 2023-04-11 20:10 | PC.NURSE ---
HR low 50s,47 lowest,no chest pain ,no Shortness of breath noted,Dr. Locke notified
[2023-04-11] MEDS: vancomycin HCL 500 MG in 0.9 % Sodium Chloride 100 ML 110 MG IV (20:42)
[2023-04-11] MEDS: Melatonin 3 MG TABLET PO (20:43)
[2023-04-12] MEDS: 0.9 % Sodium Chloride Flush 3 ML SYRINGE IVFLUSH ×2 (00:35→08:56)
[2023-04-12] MEDS: Piperacillin Sodium/Tazobactam 3.375 GM in 0.9 % Sodium Chloride 50 ML IV ×2 (00:35→06:23)
--- NOTE | 2023-04-12 02:55 | PC.NURSE ---
0110-Note sent to on duty hospitalist to alert her that patients HR in the mid to low 40's, with a one time dip to 39. pt awake, feeling body aches as she is Influenza positive, occasional software recruiter cough, and trying to rest. Patient is on tele-monitor and rhythm is as noted SB. Pt denies chest pain, dizziness, or feeling SOB, will continue to monitor. Pt asking for pain medication, however, stated to not give the oxycodone as she had an extra dose of Methadone in the evening and MD was made aware of low HR previous shift also. MD ordered a one time Toradol dose and increased Tylenol to 975 mg. Patient noted to fall asleep with no s/sx distress, therefore, will monitor and administer when needed. o2 sat 97% room-air. lung go dim on right side, ivabx as ordered.
[2023-04-12 04:00] VITALS: BP 111/58; PULSE 48; RESP 18; TEMP 36.6; O2SAT 97
[2023-04-12] MEDS: Ketorolac Tromethamine 30 MG/ML VIAL IVPUSH (04:54)
[2023-04-12 05:24] VITALS: RESP 18
[2023-04-12 05:43] LABS: MANUAL DIFF FLAG NO
[2023-04-12 05:47] LABS: Eosinophils Percent Auto 0.6 % (0-4); Hemoglobin 10.3 g/dl (12.0-16.0); Imm Gran Abs Auto 0.01 X10*3/uL (0.00-0.03); Imm Gran Pct Auto 0.3 % (0.0-0.4); Lymphocytes Absolute Auto 1.2 X10*3/uL (1.2-4.9); Lymphocytes Percent Auto 39.3 % (20-40); Mean Corpuscular HGB Conc 33.2 g/dl (31.0-35.0); Mean Corpuscular Hemoglobin 27.4 pg (27.0-33.0); Mean Corpuscular Volume 82.4 fL (80.0-98.0); Mean Platelet Volume 10.2 fL (9.4-12.3); Monocytes Absolute Auto 0.2 X10*3/uL (0.1-1.2); Monocytes Percent Auto 5.8 % (2-11); Neutrophils Absolute Auto 1.7 x10*3/uL (2.0-8.3); Platelet Count 92 X10*3/uL (160-400); Red Blood Count 3.76 X10*6/uL (4.20-5.50); Red Cell Distribution Width 13.9 % (11.0-16.0); White Blood Count 3.1 X10*3/uL (4.8-10.8)
[2023-04-12 06:14] LABS: Alanine Aminotransferase 8 U/L (0-31); Albumin Level 3.5 g/dL (3.5-5.0); Alkaline Phosphatase 28 U/L (39-117); Anion Gap 12 (12-20); Aspartate Amino Transferase 20 U/L (5-31); Bilirubin Total 0.4 mg/dL (0.0-1.0); Blood Urea Nitrogen 15 mg/dL (9-16); Carbon Dioxide 19 mmol/L (22-29); Chloride 113 mmol/L (96-108); Estimated Glomerular Filt Rate > 60; Glucose Random 116 mg/dL (60-115); Potassium 3.3 mmol/L (3.3-5.1); Sodium 141 mmol/L (135-145)
[2023-04-12] MEDS: vancomycin HCL 500 MG in 0.9 % Sodium Chloride 100 ML 110 MG IV (07:17)
[2023-04-12] MEDS: Oseltamivir Phosphate 30 MG CAPSULE PO (07:17)
[2023-04-12 07:51] VITALS: BP 115/60; PULSE 50; RESP 16; TEMP 36.1; O2SAT 98
[2023-04-12] MEDS: guaiFENesin 200 MG/10 ML 10 ML LIQUID PO (08:55)
[2023-04-12] MEDS: oxyCODONE HCl Immed Release 5 MG TABLET 10 MG PO (08:55)
[2023-04-12] MEDS: Enoxaparin Sodium 40 MG/0.4 ML SYRINGE SUBCUT (08:55)
[2023-04-12] MEDS: Acetaminophen 325 MG TABLET 975 MG PO (08:55)
[2023-04-12 11:48] VITALS: PULSE 50
--- NOTE | 2023-04-12 12:02 | PM.EVENT ---
Event Note Date of Service: 04/12/23 Event Note: Addiction consult placed for patient with OUD currently medically admitted with flu and pneumonia Chart reviewed and case discussed with RN and attending recieved methadone yesterday (04/11) total of 20mg --concern due to HR decreasing this morning HR in the 50s c/o of withdrawal sx to rn Plan: -methadone 20mg X1 now -methadone 10mg QD PRN Time Spent With Patient Time: Total time managing care of this patient today ____ minutes.
[2023-04-12] MEDS: methADONE HCl 20 MG/2 ML ORAL.CONC PO (12:27)
[2023-04-12] MEDS: ondansetron HCL 4 MG/2 ML VIAL IVPUSH (12:33)
--- NOTE | 2023-04-12 13:13 | PC.NURSE ---
Patient stating she wants to leave AMA. Having pain and unable to sleep. Dr. Tejada notified and up to see patient; order for ativan. Before this nurse could administer ativan, patient witnessed entering stairwell with street clothes on. Security notified. Dr. Tejada notified. IV found at bedside.
--- NOTE | 2023-04-12 14:09 | PM.DS ---
DS: Providers Provider Date of Service: 04/12/23 Date of admission: 04/11/23 09:37 Date of discharge: 04/12/23 Primary care physician: Immanuel Physician Consults: 04/11/23 08:23 Addiction Medicine Stat Consulting Provider: Addiction Covering Reason for consultation: withdrawal uses heroin DS: Diagnosis Discharge Diagnosis (1) Influenza A: Status: Acute (2) Pneumonia: Status: Acute DS: Summary Hospital Course Hospital Course: 48-year-old female with a history of IV cocaine and heroin use ongoing presents with approximately 24-48 hours of worsening shortness of breath cough and body aches. Initial presentation to the ER temperature was 99.2 degrees and she was profoundly hypotensive. She denied open wounds or other substances. She was aggressively volume resuscitated with albumin and lactated ringers and responded to therapy. She was given vancomycin and ceftriaxone in the ER and will be admitted for further management; chest x-ray consistent with bilateral lower lobe pneumonia Hospital course Admitted to general medical floor and maintained on vancomycin and Zosyn. Seen in consultation by addiction Medicine who recommended initially 10 mg of Ativan given her blood pressure but on the day of discharge recommended 20. She was also receiving oxycodone q. 4 hours p.r.n. for pain. Called to the room this a.m. and patient states she is in more pain and can not sleep. Offer to increase her methadone as per addiction however patient was reluctant. Offered Ativan so that she could sleep this afternoon and initially she agreed. Before order could be put in patient dressed and went out the stairwell. She is being discharged against medical advice Time Attestation Discharge coordination time: Greater than 30 minutes Quality: Safe Use of Opioids Does Pt have an Active Cancer Diagnosis on the Problem List?: No Quality: Stroke Does the patient have a stroke diagnosis?: No Physical Exam Vital Signs: Vital Signs: Last Vital Signs Temp 96.9 F 04/12/23 07:51 Pulse 50 04/12/23 07:51 Resp 16 04/12/23 07:51 BP 115/60 04/12/23 07:51 Pulse Ox 98 04/12/23 07:51 O2 Del Method Room Air 04/12/23 07:51 O2 Flow Rate 1 04/11/23 13:43 Oxygen Flow Rate 3.5 04/11/23 06:40 BMI result Body Mass Index 20.0 Const: Other: Awake alert oriented x3 no acute distress Resp: Other: Bilateral lower lobe rhonchi with expiratory wheezes Cardio: Other: No S4; positive S1-S2; no S3 murmurs rubs or gallops GI: Other: Soft nontender nondistended normoactive bowel sounds Neuro: Other: Cranial nerves 2-12 grossly intact as tested. Motor is 5/5 all extremities. Sensation is intact. Cognition is appropriate Extrem: Other: No edema bilaterally DS: Data Data Completed and Pending Labs on day of discharge: Laboratory Results - last 24 hr 04/12/23 05:27 WBC 3.1 L RBC 3.76 L D Hgb 10.3 L D Hct 31.0 L D MCV 82.4 MCH 27.4 MCHC 33.2 RDW 13.9 Plt Count 92 L D MPV 10.2 Immature Gran % (Auto) 0.3 Neut % (Auto) 54.0 Lymph % (Auto) 39.3 [place] % (Auto) 5.8 Eos % (Auto) 0.6 Baso % (Auto) 0.0 Lymph # (Auto) 1.2 [place] # (Auto) 0.2 Eos # (Auto) 0.0 Baso # (Auto) 0.0 Abs Immat Gran (auto) 0.01 Absolute Neuts (auto) 1.7 L Absolute Nucleated RBC 0.000 Nucleated RBC % (auto) 0.0 Sodium 141 Potassium 3.3 Chloride 113 H Carbon Dioxide 19 L Anion Gap 12 BUN 15 Creatinine 0.61 Estim Creat Clear Calc 87.0 Estimated GFR > 60 Random Glucose 116 H Calcium 8.0 L D Total Bilirubin 0.4 AST 20 ALT 8 Alkaline Phosphatase 28 L Total Protein 6.0 L Albumin 3.5 Preliminary micro results at discharge 04/11/23 05:39 Blood Culture - Preliminary Blood - Venous No growth after 24 hours. 04/11/23 05:28 Blood Culture - Preliminary Blood - Venous No growth after 24 hours. Discharge Plan Discharge Anticipated Discharge Date/Time: 04/12/23 14:08 Patient Disposition: Left Against Medical Advice Discharge Diagnosis: Pneumonia Referrals: Physician,Unknown J [Primary Care Provider] - 1 Week Discharge Medications: No Action No Known Home Meds Discharge Orders: Discharge Order (Routine); Ordered 04/12/23 Ordered By: Adeel Tejada Diet: Advance to usual diet Activity on Discharge: As tolerated Care Plan Goals: AMA Health Concerns: AMA Plan of Treatment: AMA Assessment: AMA
== END 2023-04-12 13:15 | disposition left against medical advice (07) | DRG 139 ==
LOC: HO.ED 06:52 → HO.EDOVER 09:42 → HO.S3 12:33
PROVIDERS: Admitting Provider Hospitalist; Emergency Provider Internal Medicine; Visit Provider Hospitalist
DX: J10.00 Influenza due to other identified influenza virus with unspecified type of pneumonia (principal); I95.9 Hypotension, unspecified; F11.10 Opioid abuse, uncomplicated; F19.10 Other psychoactive substance abuse, uncomplicated; F17.210 Nicotine dependence, cigarettes, uncomplicated; Z71.6 Tobacco abuse counseling; Z20.822 Contact with and (suspected) exposure to COVID-19
CPT/HCPCS: 36415; 71045; 80053; 80307; 81001; 83605; 85007; 85025; 85027; 87040; 87502; 87635; 93005; 99285; 99499; J0696; J1650; J1885; J2405; J2543; J3370; J3371; P9047

== ENCOUNTER → 2023-04-11 05:16 | Outpatient (BNV) | payer MEDICAID, SELFPAY | PROVIDERS: Admitting Provider Hospitalist; Emergency Provider Internal Medicine; Visit Provider Internal Medicine | DX: I49.3 Ventricular premature depolarization (principal) | CPT/HCPCS: 93010 ==

== ENCOUNTER → 2023-04-11 09:37 | Outpatient (BNV) | payer MEDICAID, SELFPAY | PROVIDERS: Admitting Provider Hospitalist; Emergency Provider Internal Medicine; Visit Provider Hospitalist | DX: J09.X1 Influenza due to identified novel influenza A virus with pneumonia (principal); I95.9 Hypotension, unspecified; F11.90 Opioid use, unspecified, uncomplicated; F14.90 Cocaine use, unspecified, uncomplicated | CPT/HCPCS: 99223; 99238 ==

== ENCOUNTER 2023-04-16 16:13 | Outpatient (REF) | payer MEDICAID, SELFPAY ==
[2023-04-16 17:32] LABS: Basophils Percent Auto 0.3 % (0-2); Eosinophils Percent Auto 1.3 % (0-4); Hemoglobin 12.4 g/dl (12.0-16.0); Imm Gran Abs Auto 0.02 X10*3/uL (0.00-0.03); Imm Gran Pct Auto 0.7 % (0.0-0.4); Lymphocytes Absolute Auto 1.1 X10*3/uL (1.2-4.9); Lymphocytes Percent Auto 34.5 % (20-40); MANUAL DIFF FLAG SCAN; Mean Corpuscular HGB Conc 34.4 g/dl (31.0-35.0); Mean Corpuscular Hemoglobin 27.7 pg (27.0-33.0); Mean Corpuscular Volume 80.4 fL (80.0-98.0); Mean Platelet Volume 9.4 fL (9.4-12.3); Monocytes Absolute Auto 0.3 X10*3/uL (0.1-1.2); Monocytes Percent Auto 11.2 % (2-11); Neutrophils Absolute Auto 1.6 x10*3/uL (2.0-8.3); Platelet Count 239 X10*3/uL (160-400); Red Blood Count 4.48 X10*6/uL (4.20-5.50); Red Cell Distribution Width 13.5 % (11.0-16.0); SCAN SMEAR FLAG 1
[2023-04-16 17:50] LABS: Alanine Aminotransferase 13 U/L (0-31); Albumin Level 4.2 g/dL (3.5-5.0); Alkaline Phosphatase 39 U/L (39-117); Anion Gap 11 (12-20); Aspartate Amino Transferase 16 U/L (5-31); Bilirubin Total 0.4 mg/dL (0.0-1.0); Blood Urea Nitrogen 7 mg/dL (9-16); Carbon Dioxide 27 mmol/L (22-29); Chloride 108 mmol/L (96-108); Estimated Glomerular Filt Rate > 60; Glucose Random 103 mg/dL (60-115); Potassium 3.3 mmol/L (3.3-5.1); Sodium 143 mmol/L (135-145); Total Protein 7.9 g/dL (6.5-8.0)
[2023-04-16 18:04] LABS: SLIDE REVIEW VERIFIED
[2023-04-17 03:57] LABS: HBS Num1 156.91 mIU/mL (0-7.99); HBc Num1 0.09 S/CO (0.00-0.79); HBsAGNum1 0.31 S/CO (0.00-0.99); Hepatitis B Core Antibody Nonreactive (Nonreactive); Hepatitis B Surface Antigen Negative (Negative); ~Hepatitis B Surface Antibody REACTIVE (Nonreactive)
[2023-04-17 04:11] LABS: Hepatitis A Antibody IgG REACTIVE (Nonreactive); ~Hepatitis A Antibody IgG 7.58 S/CO (0.00-0.99)
[2023-04-17 19:08] LABS: C. trachomatis RNA TMA NOT DETECTED (NOT DETECTED); N. gonorrhoeae RNA TMA NOT DETECTED (NOT DETECTED)
[2023-04-19 14:39] LABS: HIV RNA PCR Qn Copies 129000 copies/mL (NOT DETECTED); HIV RNA PCR Qn Log Copies 5.11 (NOT DETECTED)
[2023-04-19 14:43] LABS: HCV Log PCR 6.92 Log IU/mL (NOT DETECTED); HepC Viral Load 8260000 IU/mL (NOT DETECTED)
[2023-04-20 13:34] LABS: RPR Rapid Plasma Reagin NON-REACTIVE (NON-REACTIVE)
[2023-04-21 10:18] LABS: Hepatitis C Genotype 1a
[2023-04-21 13:48] LABS: C. Trachomatis RNA TMA, Throat NOT DETECTED; N. gonorrhoeae RNA TMA, Throat NOT DETECTED
== END 2023-04-16 16:14 | disposition home or self-care (01) ==
LOC: HO.HHCL 16:13
PROVIDERS: Visit Provider Internal Medicine
DX: B20 Human immunodeficiency virus [HIV] disease (principal); B18.2 Chronic viral hepatitis C
CPT/HCPCS: 36415; 80053; 81513; 85025; 86592; 86704; 86706; 86708; 87340; 87491; 87522; 87536; 87591; 87902

== ENCOUNTER 2024-01-08 10:48 | Outpatient (REF) | payer MEDICAID, SELFPAY ==
[2024-01-08 13:44] LABS: Hematocrit 37.2 % (37.0-47.0); Hemoglobin 12.8 g/dl (12.0-16.0); Mean Corpuscular HGB Conc 34.4 g/dl (31.0-35.0); Mean Corpuscular Hemoglobin 29.1 pg (27.0-33.0); Mean Corpuscular Volume 84.5 fL (80.0-98.0); Platelet Count 194 X10*3/uL (160-400); Red Cell Distribution Width 14.6 % (11.0-16.0); White Blood Count 4.3 X10*3/uL (4.8-10.8)
[2024-01-08 14:05] LABS: Alanine Aminotransferase 23 U/L (0-31); Alkaline Phosphatase 53 U/L (39-117); Anion Gap 11 (12-20); Aspartate Amino Transferase 29 U/L (5-31); Bilirubin Total 0.3 mg/dL (0.0-1.0); Blood Urea Nitrogen 13 mg/dL (9-16); Calcium 8.4 mg/dL (8.4-10.2); Carbon Dioxide 24 mmol/L (22-29); Chloride 106 mmol/L (96-108); Estimated Glomerular Filt Rate > 60; Glucose Random 179 mg/dL (60-115); Potassium 3.3 mmol/L (3.3-5.1); Sodium 138 mmol/L (135-145); Total Protein 7.6 g/dL (6.5-8.0)
[2024-01-09 03:34] LABS: Syphilis Screen Nonreactive (Nonreactive)
[2024-01-09 03:48] LABS: Hepatitis B Surface Antigen Negative (Negative)
[2024-01-11 17:59] LABS: HCV RNA PCR Qn 13500000 IU/mL (NOT DETECTED); HCV RNA PCR Qn 7.13 Log IU/mL (NOT DETECTED)
[2024-01-15 18:58] LABS: HCV Genotype LiPA 1a
== END 2024-01-08 10:49 | disposition home or self-care (01) ==
LOC: HO.HHCL 10:48
PROVIDERS: Visit Provider Physician Assistant
DX: F11.10 Opioid abuse, uncomplicated (principal)
CPT/HCPCS: 36415; 80053; 85027; 86780; 87340; 87522; 87902

== ENCOUNTER 2024-02-02 11:46 | Outpatient (REF) | payer MEDICAID, SELFPAY ==
[2024-02-02 13:55] LABS: MANUAL DIFF FLAG NO
[2024-02-02 14:08] LABS: Basophils Percent Auto 0.5 % (0-2); Eosinophils Percent Auto 0.8 % (0-4); Hematocrit 42.6 % (37.0-47.0); Hemoglobin 14.3 g/dl (12.0-16.0); Imm Gran Abs Auto 0.01 X10*3/uL (0.00-0.03); Imm Gran Pct Auto 0.3 % (0.0-0.4); Lymphocytes Absolute Auto 1.3 X10*3/uL (1.2-4.9); Lymphocytes Percent Auto 34.2 % (20-40); Mean Corpuscular HGB Conc 33.6 g/dl (31.0-35.0); Mean Corpuscular Hemoglobin 29.5 pg (27.0-33.0); Mean Platelet Volume 10.2 fL (9.4-12.3); Monocytes Absolute Auto 0.4 X10*3/uL (0.1-1.2); Monocytes Percent Auto 9.3 % (2-11); Neutrophils Absolute Auto 2.1 x10*3/uL (2.0-8.3); Neutrophils Percent Auto 54.9 % (45-73); Platelet Count 199 X10*3/uL (160-400); Red Blood Count 4.84 X10*6/uL (4.20-5.50); Red Cell Distribution Width 13.6 % (11.0-16.0); White Blood Count 3.8 X10*3/uL (4.8-10.8)
[2024-02-02 14:14] LABS: Alanine Aminotransferase 30 U/L (0-31); Albumin Level 4.2 g/dL (3.5-5.0); Alkaline Phosphatase 49 U/L (39-117); Anion Gap 10 (12-20); Aspartate Amino Transferase 36 U/L (5-31); Bilirubin Total 0.6 mg/dL (0.0-1.0); Blood Urea Nitrogen 13 mg/dL (9-16); Calcium 8.5 mg/dL (8.4-10.2); Carbon Dioxide 24 mmol/L (22-29); Chloride 104 mmol/L (96-108); Estimated Glomerular Filt Rate > 60; Glucose Random 167 mg/dL (60-115); Potassium 3.6 mmol/L (3.3-5.1); Sodium 134 mmol/L (135-145); Total Protein 7.7 g/dL (6.5-8.0)
[2024-02-04 22:59] LABS: HIV RNA PCR Qn Copies 23 copies/mL (NOT DETECTED); HIV RNA PCR Qn Log Copies 1.36 (NOT DETECTED)
[2024-02-05 22:33] LABS: Absolute CD3 Count 992 cells/uL (840-3060); Absolute CD4 Count 508 cells/uL (490-1740); Absolute CD8 Count 481 cells/uL (180-1170); Absolute Lymphocytes 1173 cells/uL (850-3900); CD4 CD8 Ratio 1.06 (0.86-5.00); Percent CD3 Cells 85 % (57-85); Percent CD4 Cells 43 % (30-61); Percent CD8 Cells 41 % (12-42)
== END 2024-02-02 11:47 | disposition home or self-care (01) ==
LOC: HO.HHCL 11:46
PROVIDERS: Visit Provider Internal Medicine
DX: B20 Human immunodeficiency virus [HIV] disease (principal)
CPT/HCPCS: 36415; 80053; 85025; 86359; 86360; 87536